=== PATIENT | female | born 1945 | race Hispanic/Latino ===

== ENCOUNTER 2019-07-17 17:37 | Emergency (ER) | payer MEDICARE ==
--- NOTE | 2019-07-17 18:04 | Emergency Department Report ---
Upper Extremity - HPI Chief Complaint: Fall Stated Complaint: ARM INJURY Time Seen by Provider: 07/17/19 18:01 Upper Extremity: Right Shoulder, Right Arm Occurred When: Today Mechanism: Fall Severity: severe Symptoms: Yes Pain with Movement, Yes Limited Range of Movement, No Deformity, No Numbness, No Weakness, No Swelling Other History: Mrs. Leigh is a 74 yo female who fell while working in her garden. She has abrasion to right knee. She has a bruised nose with bleeding. She has severe shoulder pain. 10/10 right shoulder pain with worse with movement and palpation. No loss of consciousness. ED Review of Systems ROS: Stated complaint: ARM INJURY Other details as noted in HPI Constitutional: denies: fever, malaise Respiratory: denies: cough, shortness of breath Gastrointestinal: denies: abdominal pain, nausea, vomiting Musculoskeletal: arthralgia, myalgia Neurological: denies: headache ED Past Medical Hx - Past Medical History Previous Medical History?: Yes Hx Hypertension: Yes Hx Diabetes: Yes Additional medical history: high cholestrol - Surgical History Past Surgical History?: Yes Additional Surgical History: tubal ligation - Social History Smoking Status: Never Smoker Substance Use Type: None - Medications Home Medications: Home Medications Medication Instructions Recorded Confirmed Last Taken Type HYDROcodone/APAP 5-325 [Concord 1 each PO Q6HR PRN #15 tablet 07/17/19 Unknown Rx 5/325] Upper Extremity Exam - Exam General: Vital signs noted. No distress. Alert and acting appropriately. Head and Torso: Yes HEENT Abnormality (bruising at the bridge of nose, no epistaxis), No Neck Tenderness, No Chest/Lungs Abnormality, No Abdominal Tenderness, No Back Tenderness Shoulder Exam: Yes Shoulder Tenderness, Yes Clavicle Tenderness, Yes AC Joint Tenderness, No Normal Range of Motion in Shoulder, No Shoulder Deformity Arm Exam: Yes Arm/Humerus Tenderness, No Arm Deformity Elbow: Yes Normal Range of Motion in Elbow, No Elbow Tenderness, No Elbow Deformity Forearm: No Forearm Tenderness, No Forearm Deformity, No Pain with Pronation, No Pain with Supination Wrist: Yes Normal ROM in Wrist, No Wrist Tenderness, No Wrist Deformity, No Snuffbox Tenderness, No Pain with Axial Thumb Compression Hand: Yes Normal ROM in Digit(s), Yes Tendon Dysfunction, No Hand Tenderness, No Hand Deformity, No Digit Tenderness, No Digit(s) Deformity CMS Exam: Yes Normal Distal Pulses, Yes Normal Capillary Refill, Yes Normal Distal Sensation, No Broken Skin ED Course Vital Signs 07/17/19 17:46 Temperature 98.2 F Pulse Rate 90 Respiratory 20 Rate Blood Pressure 139/100 O2 Sat by Pulse 97 Oximetry ED Medical Decision Making - Radiology Data Radiology results: report reviewed Right elbow radiographs: Minimal degenerative changes no evidence of fracture or subluxation joint effusion Right shoulder: Moderate degenerative changes involving the AC joint, narrowing distance between the humeral head may be related to chronic rotator cuff tear Right humerus radiographs: no fracture or subluxation moderate degenerative changes at the AC joint - Medical Decision Making This is a 74-year-old female who presents status post fall onto her right shoulder. 1. Suspect rotator cuff injury with severe pain limited range of motion, extremity is otherwise neuro vascularly intact referred to orthopedic surgeon, she came to the emergency department with her own sling Prescribed Concord for pain 2. Nasal fracture non-complicated patient given education and reassurance Critical care attestation.: If time is entered above; I have spent that time in minutes in the direct care of this critically ill patient, excluding procedure time. ED Disposition Clinical Impression: Injury of right rotator cuff, Nasal fracture Disposition: TO HOME OR SELFCARE Is pt being admited?: No Does the pt Need Aspirin: No Condition: Stable Instructions: Rotator Cuff Injury (ED), Nasal Fracture (ED) Prescriptions: HYDROcodone/APAP 5-325 [Concord 5/325] 1 each PO Q6HR PRN #15 tablet PRN Reason: Pain Referrals: KIRK SÁNCHEZ MD [Staff Physician] - 3-5 Days
[2019-07-17] MEDS ORDERED: HYDROcodone/ACETAMINOPHEN 5-325 MG TAB PO ONE (18:19)
--- NOTE | 2019-07-17 18:57 | XRay Report ---
RIGHT ELBOW 3 VIEWS INDICATION / CLINICAL INFORMATION: Right elbow pain. COMPARISON: None available. FINDINGS: BONES / JOINT(S): There are minimal degenerative changes. There is no evidence of fracture, subluxati on, destructive lesion or joint effusion. SOFT TISSUES: No significant abnormality. ADDITIONAL FINDINGS: None. Signer Name: Stephen Browne MD Signed: 07/17/2019 6:53 PM Workstation Name: [id number]
--- NOTE | 2019-07-17 18:58 | XRay Report ---
RIGHT HUMERUS 2 VIEWS INDICATION / CLINICAL INFORMATION: Fall with right arm pain. COMPARISON: None available. FINDINGS: BONES / JOINT(S): No acute fracture or subluxation. There are moderate degenerative changes involving the acromioclavicular joint. SOFT TISSUES: No significant abnormality. ADDITIONAL FINDINGS: None. Signer Name: Stephen Browne MD Signed: 07/17/2019 6:54 PM Workstation Name: [id number]
--- NOTE | 2019-07-17 19:00 | XRay Report ---
RIGHT SHOULDER 3 VIEWS INDICATION / CLINICAL INFORMATION: Fall with right shoulder pain. COMPARISON: None available. FINDINGS: BONES / JOINT(S): There are moderate degenerative changes involving the acromioclavicular joint. Ther e is narrowing of the distance between the humeral head and acromion on one of the views which may be related to a chronic rotator cuff tear. There is no evidence of fracture or dislocation. SOFT TISSUES: No significant abnormality. ADDITIONAL FINDINGS: The visualized right lung is clear. Signer Name: Stephen Browne MD Signed: 07/17/2019 6:55 PM Workstation Name: [id number]
[2019-07-17 19:48] VITALS: BP 134/78
== END 2019-07-17 19:48 | disposition home or self-care (01) ==
LOC: ED 17:37
DX: S02.2XXA Fracture of nasal bones, initial encounter for closed fracture (principal); S46.001A Unspecified injury of muscle(s) and tendon(s) of the rotator cuff of right shoulder, initial encounter; I10 Essential (primary) hypertension; E11.9 Type 2 diabetes mellitus without complications; E78.00 Pure hypercholesterolemia, unspecified; Z98.51 Tubal ligation status; Z79.899 Other long term (current) drug therapy; W18.39XA Other fall on same level, initial encounter; Y93.89 Activity, other specified; Y92.89 Other specified places as the place of occurrence of the external cause; Y99.8 Other external cause status
CPT/HCPCS: 99283